=== PATIENT | male | born 1985 | race African-American/Black ===

== ENCOUNTER 2018-01-10 14:59 | Inpatient (IN) | payer OTHER ==
[~2018-01-10] VITALS: Ht 165.1 cm; Wt 61.6 kg
[~2018-01-10 14:59] MED LIST: CEPH500C3 PO; ROXI5TAB4 PO; SULF-154 PO; Z.0.WALKERFRONT
[2018-01-10] MEDS ORDERED: IOHEXOL 350 MG/ML 10 ML VIAL (for RAD DIAG) IVCONTRAST ONE (15:00)
[2018-01-10 15:07] VITALS: BP 113/75; PULSE 96; RESP 18; TEMP 103.2; O2SAT 97
[2018-01-10] MEDS ORDERED: SODIUM CHLOR 0.9% 1000 ML INJ 1,000 ML IV SCH (15:13)
[2018-01-10] MEDS ORDERED: PIPERACIL-TAZO 3.375 GM PREMIX 50 ML IV ONE (15:15)
[2018-01-10] MEDS ORDERED: ACETAMINOPHEN 325 MG TAB PO ONE (15:15)
[2018-01-10] MEDS ORDERED: MORPHINE SULFATE 4 MG/ML INJ IV PUSH ONE (15:15)
[2018-01-10] MEDS ORDERED: ONDANSETRON HCL 4 MG/2 ML VIAL IVP ONE (15:15)
[2018-01-10 15:17] VITALS: BP 115/75; PULSE 100; RESP 20; TEMP 102.5; O2SAT 95; O2SAT 96
--- NOTE | 2018-01-10 15:42 | PD ---
HPI Chief Complaint: Abdominal Pain Time Seen by Provider: 15:12 Travel History International Travel<30 days: No Contact w/Intl Traveler<30days: No Traveled to known affect area: No History of Present Illness HPI 32-year-old male that presents to the ED for evaluation of right lower quadrant abdominal pain as well as fever. Patient has a chronic history of HIV agreed takes no medications for it. Per patient lost his information to get the medications and has not had them in some time. States that his been having this severe right-sided pain for the past 3 days and worsened today. Gets worse with coughing and movement. Pain is mostly to the right lower quadrant but per patient he seems to be more of the following that actual abdomen. Denies any urinary or bowel movement issues. Per patient he never had surgeries on his abdomen. Allergies to medication. Per ambulance the patient' s ear was bothering 3. He didn't take anything for this. Denies any nausea or vomiting. States having some cough and congestion for the past couple of days. No allergies to medication. Per patient the pain is 8 out of 10 and constant. Nothing makes it better. Coughing and movement makes it worse. No history of kidney stones. PFSH Past Medical History Asthma: No Autoimmune Disease: Yes (HIV POSITIVE) Blood Disorders: No Cancer: No Cardiovascular Problems: No COPD: No Endocrine: No Gastrointestinal Disorders: No Genitourinary: No Immune Disorder: Yes (HIV) Musculoskeletal: No Neurologic: No Psychiatric: No Reproductive: No Respiratory: No Integumentary: Yes (abscess' on the right leg, sx drained) Tetanus Vaccination: Unknown Influenza Vaccination: No Past Surgical History Abdominal Surgery: No AICD: No Arteriovenous Shunt: No Cardiac Surgery: No Ear Surgery: No Endocrine Surgery: No Eye Surgery: No Genitourinary Surgery: No Insulin Pump: No Joint Replacement: No Neurologic Surgery: No Oral Surgery: No Pacemaker: No Thoracic Surgery: No Other Surgery: Yes (FRACTURED JAW) Social History Alcohol Use: Yes Tobacco Use: Yes (10) Substance Use: Yes (MARIJUANA OCCASIONALLY ) Allergies-Medications (Allergen,Severity, Reaction): Coded Allergies: No Known Allergies (Verified , 08/15/16) Reported Meds & Prescriptions Reported Meds & Active Scripts Active Roxicet 5/325 (Oxycodone/Acetaminophen) Tab 2 Tab PO Q12HR NEB PRN Septra Ds (Trimethoprim/Sulfamethoxazole) Tab 1 Tab PO MOWEFR@09 30 Days Keflex (Cephalexin Monohydrate) 500 Mg Cap 500 Mg PO Q8 14 Days Walker Front Wheel (Walkerfront) Device 1 Unit Review of Systems Except as stated in HPI: all other systems reviewed are Neg Physical Exam Narrative GENERAL: SKIN: Warm and dry. HEAD: Atraumatic. Normocephalic. EYES: Pupils equal and round. No scleral icterus. No injection or drainage. ENT: No nasal bleeding or discharge. Mucous membranes pink and moist. NECK: Trachea midline. No JVD. CARDIOVASCULAR: Regular rate and rhythm. RESPIRATORY: No accessory muscle use. Clear to auscultation. Breath sounds equal bilaterally. GASTROINTESTINAL: Abdomen soft, non-tender, nondistended. Hepatic and splenic margins not palpable. MUSCULOSKELETAL: Extremities without clubbing, cyanosis, or edema. No obvious deformities. Tender to palpation on the right flank and some in the right lower quadrant but mostly in the right flank. NEUROLOGICAL: Awake and alert. No obvious cranial nerve deficits. Motor grossly within normal limits. Five out of 5 muscle strength in the arms and legs. Normal speech. PSYCHIATRIC: Appropriate mood and affect; insight and judgment normal. Data Data Last Documented VS Vital Signs Date Time Temp Pulse Resp B/P (MAP) Pulse Ox O2 Delivery O2 Flow Rate FiO2 01/10/18 18:19 98.7 73 20 106/67 (80) 97 Room Air Orders Orders Complete Blood Count With Diff (01/10/18 15:13) Comprehensive Metabolic Panel (01/10/18 15:13) Lipase (01/10/18 15:13) Lactic Acid (01/10/18 15:13) Prothrombin Time / Inr (Pt) (01/10/18 15:13) Act Partial Throm Time (Ptt) (01/10/18 15:13) Urinalysis - C+S If Indicated (01/10/18 15:13) Ct Abd/Pel W Iv Contrast(Rout) (01/10/18 15:13) Iv Access Insert/Monitor (01/10/18 15:13) Ecg Monitoring (01/10/18 15:13) Oximetry (01/10/18 15:13) Morphine Inj (Morphine Inj) (01/10/18 15:15) Ondansetron Inj (Zofran Inj) (01/10/18 15:15) Sodium Chlor 0.9% 1000 Ml Inj (Ns 1000 M (01/10/18 15:13) Piperacil-Tazo 3.375 Gm Premix (Zosyn 3. (01/10/18 15:15) Acetaminophen (Tylenol) (01/10/18 15:15) Chest, Single Ap (01/10/18 ) Blood Culture (01/10/18 15:19) Sodium Chlor 0.9% 1000 Ml Inj (Ns 1000 M (01/10/18 16:15) Iohexol 350 Inj (Omnipaque 350 Inj) (01/10/18 15:00) Vancomycin Inj (Vancomycin Inj) (01/10/18 18:15) Admit Order (Ed Use Only) (01/10/18 18:21) Labs Laboratory Tests Test 01/10/18 15:25 01/10/18 18:00 White Blood Count 12.6 TH/MM3 Red Blood Count 4.19 MIL/MM3 Hemoglobin 13.4 GM/DL Hematocrit 38.4 % Mean Corpuscular Volume 91.5 FL Mean Corpuscular Hemoglobin 31.9 PG Mean Corpuscular Hemoglobin Concent 34.9 % Red Cell Distribution Width 12.5 % Platelet Count 135 TH/MM3 Mean Platelet Volume 9.6 FL Neutrophils (%) (Auto) 83.3 % Lymphocytes (%) (Auto) 7.9 % Monocytes (%) (Auto) 8.6 % Eosinophils (%) (Auto) 0.0 % Basophils (%) (Auto) 0.2 % Neutrophils # (Auto) 10.5 TH/MM3 Lymphocytes # (Auto) 1.0 TH/MM3 Monocytes # (Auto) 1.1 TH/MM3 Eosinophils # (Auto) 0.0 TH/MM3 Basophils # (Auto) 0.0 TH/MM3 CBC Comment DIFF FINAL Differential Comment Prothrombin Time 11.7 SEC Prothromb Time International Ratio 1.2 RATIO Activated Partial Thromboplast Time 36.2 SEC Blood Urea Nitrogen 10 MG/DL Creatinine 1.07 MG/DL Random Glucose 92 MG/DL Total Protein 9.3 GM/DL Albumin 3.1 GM/DL Calcium Level 8.7 MG/DL Alkaline Phosphatase 69 U/L Aspartate Amino Transf (AST/SGOT) 29 U/L Alanine Aminotransferase (ALT/SGPT) 17 U/L Total Bilirubin 0.5 MG/DL Sodium Level 130 MEQ/L Potassium Level 3.8 MEQ/L Chloride Level 96 MEQ/L Carbon Dioxide Level 25.5 MEQ/L Anion Gap 9 MEQ/L Estimat Glomerular Filtration Rate 97 ML/MIN Lactic Acid Level 1.2 mmol/L Lipase 149 U/L Urine Color LIGHT-YELLOW Urine Turbidity CLEAR Urine pH 6.0 Urine Specific [place] 1.009 Urine Protein 30 mg/dL Urine Glucose (UA) NEG mg/dL Urine Ketones NEG mg/dL Urine Occult Blood MOD Urine Nitrite NEG Urine Bilirubin NEG Urine Urobilinogen LESS THAN 2.0 MG/DL Urine Leukocyte Esterase NEG Urine RBC 3 /hpf Urine WBC 1 /hpf Urine Squamous Epithelial Cells <1 /hpf Microscopic Urinalysis Comment CULT NOT INDICATED MDM Medical Decision Making Medical Screen Exam Complete: Yes Emergency Medical Condition: Yes Medical Record Reviewed: Yes Interpretation(s) Last Impressions Abdomen/Pelvis CT 01/10/18 1513 Signed Impressions: Service Date/Time: December 17:35 - CONCLUSION: 1. No acute findings in the abdomen/pelvis. 2. Mass in the posterior right lung is partially included in the [id number] of the examination and probably correlates to the abnormality seen on chest x-ray. Recommend CT thorax with contrast to further evaluate the extent of this mass and to evaluate for mediastinal adenopathy. Findings are suspicious for malignancy. Uriel Lombardi MD Chest X-Ray 01/10/18 0000 Signed Impressions: Service Date/Time: December 15:23 - CONCLUSION: 1. No infiltrate seen. 2. Fullness in the right hilar region with differential considerations including asymmetrically dilated pulmonary vessels versus right hilar adenopathy. Uriel Lombardi MD CBC & BMP Diagram 01/10/18 15:25 Total Protein 9.3 H, Albumin 3.1 L, Calcium Level 8.7, Alkaline Phosphatase 69, Aspartate Amino Transf (AST/SGOT) 29, Alanine Aminotransferase (ALT/SGPT) 17, Total Bilirubin 0.5 lactic acid WNL Differential Diagnosis Appendicitis versus sepsis versus kidney disease versus AIDS versus pyelonephritis Narrative Course 32-year-old male that presents to the ED for evaluation of right lower quadrant pain and fever. Patient was properly examined and was found to have signs and symptoms of unclear etiology no definite concerning for possible appendicitis versus pyelonephritis versus sepsis. Labs and imaging were ordered. Patient was started IV fluids as well as Tylenol and pain medication. Labs and imaging showed leukocytosis and mass to right lung. My attending Dr pineda recommends admission and antibiotics. Patient agrees. Patient was admitted to Dr Majano who agrees to admission. Diagnosis Primary Impression: Pneumonia Qualified Codes: J18.1 - Lobar pneumonia, unspecified organism Additional Impressions: HIV disease Abdominal pain Qualified Codes: R10.31 - Right lower quadrant pain Admitting Information Admitting Physician Requests: Admit Mino Turcios Jan 10, 2018 15:42
--- NOTE | 2018-01-10 15:46 | RADRPT ---
EXAM DATE/TIME: 01/10/2018 15:23 [facility] COMPARISON: No previous studies available for comparison. INDICATIONS : Fever, left lateral side pain MEDICAL HISTORY : HIV SURGICAL HISTORY : None. ENCOUNTER: Initial ACUITY: 4 - 6 days PAIN SCORE: 8/10 LOCATION: chest FINDINGS: The lungs are symmetrically aerated and clear. There is asymmetric fullness in the right hilar regio n which could represent dilated central vessels or right hilar adenopathy. The left hilar region has a normal appearance. The heart is normal size. Both hemidiaphragms well delineated. CONCLUSION: 1. No infiltrate seen. 2. Fullness in the right hilar region with differential considerations including asymmetrically dilat ed pulmonary vessels versus right hilar adenopathy. Uriel Lombardi MD on January 10, 2018 at 15:44 Board Certified Radiologist. This report was verified electronically.
[2018-01-10 15:57] LABS: ALBUMIN 3.1 GM/DL (3.4-5.0); ALT (GPT) 17 U/L (12-78); AST (GOT) 29 U/L (15-37); BICARBONATE 25.5 MEQ/L (21.0-32.0); BLOOD UREA NITROGEN 10 MG/DL (7-18); CALCIUM 8.7 MG/DL (8.5-10.1); CHLORIDE 96 MEQ/L (98-107); CREATININE 1.07 MG/DL (0.60-1.30); GLOMERULAR FILTRATION RATE 97 ML/MIN (>89); GLUCOSE,RANDOM 92 MG/DL (74-106); SODIUM (NA) 130 MEQ/L (136-145)
[2018-01-10 15:59] LABS: ALKALINE PHOSPHATASE 69 U/L (45-117); TOTAL BILIRUBIN ADULT 0.5 MG/DL (0.2-1.0); TOTAL PROTEIN 9.3 GM/DL (6.4-8.2)
[2018-01-10 16:00] LABS: AUTOMATED NEUTROPHIL # 10.5 TH/MM3 (1.8-7.7); BASOPHIL % 0.2 % (0.0-2.0); HEMATOCRIT 38.4 % (39.0-51.0); HEMOGLOBIN 13.4 GM/DL (13.0-17.0); LYMPH % 7.9 % (9.0-44.0); MEAN CELL VOLUME 91.5 FL (80.0-100.0); MEAN CORPUSCULAR HEMOGLOBIN 31.9 PG (27.0-34.0); MEAN CORPUSCULAR HGB CONC 34.9 % (32.0-36.0); MEAN PLATELET VOLUME 9.6 FL (7.0-11.0); MONO % 8.6 % (0.0-8.0); MONOCYTE # 1.1 TH/MM3 (0-0.9); NEUT % 83.3 % (16.0-70.0); PLATELET COUNT 135 TH/MM3 (150-450); RED BLOOD COUNT 4.19 MIL/MM3 (4.50-5.90); RED CELL DISTRIBUTION WIDTH 12.5 % (11.6-17.2); WHITE BLOOD COUNT 12.6 TH/MM3 (4.0-11.0)
--- NOTE | 2018-01-10 16:06 | PD ---
Physical Exam Date Seen by Provider: Jan 10, 2018 Time Seen by Provider: 16:06 Narrative 32-year-old male who has HIV came to the emergency room with history of fever, abdominal/right flank pain. Patient appears to be sick and toxic. He is been seen by the PA and I'm supervising him. The working diagnosis is either rule out pyelonephritis or appendicitis. Motor shows some leukocytosis. Awaiting for UA and a CAT scan to be done and resulted. Upon examining patient appears to be in moderate distress. Patient is tender on his entire right side. He also seemed lethargic. Data Data Last Documented VS Orders Orders Complete Blood Count With Diff (01/10/18 15:13) Comprehensive Metabolic Panel (01/10/18 15:13) Lipase (01/10/18 15:13) Lactic Acid (01/10/18 15:13) Prothrombin Time / Inr (Pt) (01/10/18 15:13) Act Partial Throm Time (Ptt) (01/10/18 15:13) Urinalysis - C+S If Indicated (01/10/18 15:13) Ct Abd/Pel W Iv Contrast(Rout) (01/10/18 15:13) Iv Access Insert/Monitor (01/10/18 15:13) Ecg Monitoring (01/10/18 15:13) Oximetry (01/10/18 15:13) Morphine Inj (Morphine Inj) (01/10/18 15:15) Ondansetron Inj (Zofran Inj) (01/10/18 15:15) Sodium Chlor 0.9% 1000 Ml Inj (Ns 1000 M (01/10/18 15:13) Piperacil-Tazo 3.375 Gm Premix (Zosyn 3. (01/10/18 15:15) Acetaminophen (Tylenol) (01/10/18 15:15) Chest, Single Ap (01/10/18 ) Blood Culture (01/10/18 15:19) Sodium Chlor 0.9% 1000 Ml Inj (Ns 1000 M (01/10/18 16:15) Iohexol 350 Inj (Omnipaque 350 Inj) (01/10/18 15:00) Vancomycin Inj (Vancomycin Inj) (01/10/18 18:15) Admit Order (Ed Use Only) (01/10/18 18:21) Labs Laboratory Tests Test 01/10/18 15:25 01/10/18 18:00 White Blood Count 12.6 TH/MM3 Red Blood Count 4.19 MIL/MM3 Hemoglobin 13.4 GM/DL Hematocrit 38.4 % Mean Corpuscular Volume 91.5 FL Mean Corpuscular Hemoglobin 31.9 PG Mean Corpuscular Hemoglobin Concent 34.9 % Red Cell Distribution Width 12.5 % Platelet Count 135 TH/MM3 Mean Platelet Volume 9.6 FL Neutrophils (%) (Auto) 83.3 % Lymphocytes (%) (Auto) 7.9 % Monocytes (%) (Auto) 8.6 % Eosinophils (%) (Auto) 0.0 % Basophils (%) (Auto) 0.2 % Neutrophils # (Auto) 10.5 TH/MM3 Lymphocytes # (Auto) 1.0 TH/MM3 Monocytes # (Auto) 1.1 TH/MM3 Eosinophils # (Auto) 0.0 TH/MM3 Basophils # (Auto) 0.0 TH/MM3 CBC Comment DIFF FINAL Differential Comment Prothrombin Time 11.7 SEC Prothromb Time International Ratio 1.2 RATIO Activated Partial Thromboplast Time 36.2 SEC Blood Urea Nitrogen 10 MG/DL Creatinine 1.07 MG/DL Random Glucose 92 MG/DL Total Protein 9.3 GM/DL Albumin 3.1 GM/DL Calcium Level 8.7 MG/DL Alkaline Phosphatase 69 U/L Aspartate Amino Transf (AST/SGOT) 29 U/L Alanine Aminotransferase (ALT/SGPT) 17 U/L Total Bilirubin 0.5 MG/DL Sodium Level 130 MEQ/L Potassium Level 3.8 MEQ/L Chloride Level 96 MEQ/L Carbon Dioxide Level 25.5 MEQ/L Anion Gap 9 MEQ/L Estimat Glomerular Filtration Rate 97 ML/MIN Lactic Acid Level 1.2 mmol/L Lipase 149 U/L Urine Color LIGHT-YELLOW Urine Turbidity CLEAR Urine pH 6.0 Urine Specific [place] 1.009 Urine Protein 30 mg/dL Urine Glucose (UA) NEG mg/dL Urine Ketones NEG mg/dL Urine Occult Blood MOD Urine Nitrite NEG Urine Bilirubin NEG Urine Urobilinogen LESS THAN 2.0 MG/DL Urine Leukocyte Esterase NEG Urine RBC 3 /hpf Urine WBC 1 /hpf Urine Squamous Epithelial Cells <1 /hpf Microscopic Urinalysis Comment CULT NOT INDICATED MDM Supervised Visit with JOSELYN: Yes Theresa Martínez MD Jan 10, 2018 16:06
[2018-01-10] MEDS ORDERED: SODIUM CHLOR 0.9% 1000 ML INJ 1,000 ML IV ONE (16:15)
[2018-01-10 16:30] LABS: INTERNATIONAL NORMALIZED RATIO 1.2 RATIO; PROTHROMBIN TIME - PATIENT 11.7 SEC (9.8-11.6)
--- NOTE | 2018-01-10 17:56 | RADRPT ---
EXAM DATE/TIME: 01/10/2018 17:35 [facility] COMPARISON: CHEST SINGLE AP, January 10, 2018, 15:23. INDICATIONS : Patient complains of right sided abdominal pain. IV CONTRAST: 97 cc Omnipaque 350 (iohexol) IV ORAL CONTRAST: No oral contrast ingested. RADIATION DOSE: 6.64 CTDIvol (mGy) MEDICAL HISTORY : HIV. SURGICAL HISTORY : None. ENCOUNTER: Initial ACUITY: 1 day PAIN SCALE: 8/10 LOCATION: Right lateral mid abdomen TECHNIQUE: Volumetric scanning of the abdomen and pelvis was performed. Using automated exposure control and ad justment of the mA and/or kV according to patient size, radiation dose was kept as low as reasonably achievable to obtain optimal diagnostic quality images. DICOM format image data is available electro nically for review and comparison. FINDINGS: LOWER LUNGS: Incompletely included in the [id number] is a mass in the posterior right lung which measures 4.6 c m, is devoid of air bronchograms and has a spiculated margins. This is located posterior near the pl eural surface, but could correlate with the right hilar opacity seen on recent chest x-ray. There is also a small right pleural effusion measuring 6 mm. The left lung is clear. LIVER: Homogeneous density without lesion. There is no dilation of the biliary tree. No calcified gallston es. SPLEEN: Normal size without lesion. PANCREAS: Within normal limits. KIDNEYS: Normal in size and shape. There is no mass, stone or hydronephrosis. ADRENAL GLANDS: Within normal limits. VASCULAR: There is no aortic aneurysm. BOWEL/MESENTERY: The stomach, small bowel, and colon demonstrate no acute abnormality. There is no free intraperitone al air or fluid. ABDOMINAL WALL: Within normal limits. RETROPERITONEUM: There is no lymphadenopathy. BLADDER: No wall thickening or mass. REPRODUCTIVE: Within normal limits. INGUINAL: There is no lymphadenopathy or hernia. MUSCULOSKELETAL: Within normal limits for patient age. CONCLUSION: 1. No acute findings in the abdomen/pelvis. 2. Mass in the posterior right lung is partially included in the [id number] of the examination and probably correlates to the abnormality seen on chest x-ray. Recommend CT thorax with contrast to fu rther evaluate the extent of this mass and to evaluate for mediastinal adenopathy. Findings are susp icious for malignancy. Uriel Lombardi MD on January 10, 2018 at 17:50 Board Certified Radiologist. This report was verified electronically.
[2018-01-10] MEDS ORDERED: VANCOMYCIN INJ 1,000 MG in SODIUM CHLOR 0.9% 250 ML INJ 250 ML IV ONE (18:15)
[2018-01-10 18:19] VITALS: BP 106/67; PULSE 73; RESP 20; TEMP 98.7; O2SAT 97
[2018-01-10] MEDS ORDERED: SODIUM CHLORIDE 0.9% FLUSH 10 ML FLUSH IV FLUSH PRN (18:30)
[2018-01-10] MEDS ORDERED: NALOXONE HCL 0.4 MG/ML AMP IV PUSH PRN (18:30)
[2018-01-10] MEDS ORDERED: Vancomycin Consult Pharmacy 1 EA OTHER SCH (18:30)
[2018-01-10 18:36] LABS: BILIRUBIN, URINE NEG (NEG); BLOOD, URINE MOD (NEG); GLUCOSE,URINE NEG (NEG); KETONE, URINE NEG (NEG); NITRITE,URINE NEG (NEG); SQUAMOUS EPITHELIAL CELL URINE <1 /hpf (0-5); URINE COLOR LIGHT-YELLOW (YELLW/STRAW); URINE LEUKOCYTE ESTERASE NEG (NEG)
--- NOTE | 2018-01-10 18:58 | HHI.HP ---
HPI Service [facility] Primary Care Physician No Primary Care Physician Admission Diagnosis sepsis, pneumonia, AIDS patient non compliant Diagnoses: Travel History International Travel<30 Days: No Contact w/Intl Traveler <30 Da: No Traveled to Known Affected Are: No History of Present Illness History from patient, ER PA communication, and review of medical records. Patient reported that he came to the hospital because he's been having pain whenever he takes a deep breath. He pointed to right upper quadrant and right flank and right upper chest area. He is really noted to be having shallow breathing because of this pain. Dose to be in quite a bit of distress as well. Patient denies fever. Reports that the symptoms have been there for a week and a half. Not taking any antibiotics as an outpatient. Denies of cough but it hurts so much that he reports he just swallow food his sputum. On exam, his cough sounded more of dry cough though. Denies any nausea/vomiting/diarrhea. Denies any anterior chest pains. Denies any urinary burning or pain on urination or frequent urination. Denies seeing any blood in his stools or urine. Denies any palpitation/dizziness/syncopal episodes. Patient has history of HIV. Denies having AIDS. However has not been on medications for a few years. Claims that he has HIV at . Reports that he was on medications since then on and off. He was in senior living from 2012 to 2014 and was taking medications for it then. Review of Systems Except as stated in HPI: all other systems reviewed are Neg Past Family Social History Past Medical History HIV not on meds [id number] he was on HIV meds at senior living but was diagnosed with it since - and was on and off on hiv meds Past Surgical History boils on right leg - drainage and incision jaw sx from trauma Allergies: Coded Allergies: No Known Allergies (Verified , 08/15/16) Family History mom hiv according to him Social History no smoking regularly no etoh no drugs Physical Exam Vital Signs Vital Signs Date Time Temp Pulse Resp B/P (MAP) Pulse Ox O2 Delivery O2 Flow Rate FiO2 01/10/18 18:19 98.7 73 20 106/67 (80) 97 Room Air 01/10/18 16:23 18 01/10/18 15:27 18 01/10/18 15:17 95 Room Air 01/10/18 15:17 18 01/10/18 15:17 102.5 100 20 115/75 (88) 96 Room Air 01/10/18 15:07 103.2 96 18 113/75 (88) 97 Physical Exam GENERAL: This is a thin gentleman, in no acute distress from pain. SKIN: No rashes, ecchymoses or lesions. Cool and dry. HEAD: Atraumatic. Normocephalic. No temporal or scalp tenderness. EYES: No scleral icterus. No injection or drainage. ENT: Nose without bleeding, purulent drainage or septal hematoma. Airway patent. NECK: Trachea midline. No JVD. Supple, nontender, no meningeal signs. CARDIOVASCULAR: Tachycardic, regular rhythm without murmurs, gallops, or rubs. RESPIRATORY: Shallow breathing secondary to pain. Decreased air entry bilaterally. GASTROINTESTINAL: Abdomen soft, non-tender, nondistended. No hepato-splenomegaly , or palpable masses. No guarding. MUSCULOSKELETAL: Extremities without clubbing, cyanosis, or edema. No calf tenderness. NEUROLOGICAL: Awake and alert.Motor and sensory grossly within normal limits.Normal speech. Laboratory Laboratory Tests Test 01/10/18 15:25 01/10/18 18:00 White Blood Count 12.6 Red Blood Count 4.19 Hemoglobin 13.4 Hematocrit 38.4 Mean Corpuscular Volume 91.5 Mean Corpuscular Hemoglobin 31.9 Mean Corpuscular Hemoglobin Concent 34.9 Red Cell Distribution Width 12.5 Platelet Count 135 Mean Platelet Volume 9.6 Neutrophils (%) (Auto) 83.3 Lymphocytes (%) (Auto) 7.9 Monocytes (%) (Auto) 8.6 Eosinophils (%) (Auto) 0.0 Basophils (%) (Auto) 0.2 Neutrophils # (Auto) 10.5 Lymphocytes # (Auto) 1.0 Monocytes # (Auto) 1.1 Eosinophils # (Auto) 0.0 Basophils # (Auto) 0.0 CBC Comment DIFF FINAL Differential Comment Prothrombin Time 11.7 Prothromb Time International Ratio 1.2 Activated Partial Thromboplast Time 36.2 Blood Urea Nitrogen 10 Creatinine 1.07 Random Glucose 92 Total Protein 9.3 Albumin 3.1 Calcium Level 8.7 Alkaline Phosphatase 69 Aspartate Amino Transf (AST/SGOT) 29 Alanine Aminotransferase (ALT/SGPT) 17 Total Bilirubin 0.5 Sodium Level 130 Potassium Level 3.8 Chloride Level 96 Carbon Dioxide Level 25.5 Anion Gap 9 Estimat Glomerular Filtration Rate 97 Lactic Acid Level 1.2 Lipase 149 Urine Color LIGHT-YELLOW Urine Turbidity CLEAR Urine pH 6.0 Urine Specific [place] 1.009 Urine Protein 30 Urine Glucose (UA) NEG Urine Ketones NEG Urine Occult Blood MOD Urine Nitrite NEG Urine Bilirubin NEG Urine Urobilinogen LESS THAN 2.0 Urine Leukocyte Esterase NEG Urine RBC 3 Urine WBC 1 Urine Squamous Epithelial Cells <1 Microscopic Urinalysis Comment CULT NOT INDICATED Date/Time Source Procedure Growth Status 01/10/18 15:33 Blood Peripheral Aerobic Blood Culture Pending Received 01/10/18 15:33 Blood Peripheral Anaerobic Blood Culture Pending Received 01/10/18 18:30 Nasal Washing Influenza Types A,B Antigen (AGNELA) Pending Received Result Diagram: 01/10/18 1525 01/10/18 1525 Imaging Last [address] 01/10/18 1853 Signed Impressions: Service Date/Time: December 21:11 - CONCLUSION: 1. Dense masslike airspace consolidation in the posterior right lower lobe with adjacent 1.7 cm satellite nodule. The findings are more consistent with an infectious etiology. Recommend followup to resolution. 2. Subtle adjacent pleural thickening in the inferior right hemithorax, like reactive. Brian Escobar MD Abdomen/Pelvis CT 01/10/18 1513 Signed Impressions: Service Date/Time: December 17:35 - CONCLUSION: 1. No acute findings in the abdomen/pelvis. 2. Mass in the posterior right lung is partially included in the [id number] of the examination and probably correlates to the abnormality seen on chest x-ray. Recommend CT thorax with contrast to further evaluate the extent of this mass and to evaluate for mediastinal adenopathy. Findings are suspicious for malignancy. Uriel Lombardi MD Lung Scan-VQ Nuclear Medicine 01/10/18 0000 Signed Impressions: Service Date/Time: December 20:37 - CONCLUSION: 1. Normal V/Q scan. Brian Escobar MD Chest X-Ray 01/10/18 0000 Signed Impressions: Service Date/Time: December 15:23 - CONCLUSION: 1. No infiltrate seen. 2. Fullness in the right hilar region with differential considerations including asymmetrically dilated pulmonary vessels versus right hilar adenopathy. MD Lacoh Jiang VTE Risk Assessment Caprini VTE Risk Assessment: Mod/High Risk (score >= 2) Caprini Risk Assessment Model Point Value = 1 Point Value = 2 Point Value = 3 Point Value = 5 Age 41-60 Minor surgery BMI > 25 kg/m2 Swollen legs Varicose veins or History of unexplained or recurrent spontaneous Oral contraceptives or hormone replacement Sepsis (< 1 month) Serious lung disease, including pneumonia (< 1 month) Abnormal pulmonary function Acute myocardial infarction Congestive heart failure (< 1 month) History of inflammatory bowel disease Medical patient at bed rest Age 61-74 Arthroscopic surgery Major open surgery (> 45 min) Laparoscopic surgery (> 45 min) Malignancy Confined to bed (> 72 hours) Immobilizing plaster cast Central venous access Age >= 75 History of VTE Family history of VTE Factor V Leiden Prothrombin [id number] Lupus anticoagulant Anticardiolipin antibodies Elevated serum homocysteine Heparin-induced thrombocytopenia Other congenital or acquired thrombophilia Stroke (< 1 month) Elective arthroplasty Hip, pelvis, or leg fracture Acute spinal cord injury (< 1 month) Prophylaxis Regimen Total Risk Factor Score Risk Level Prophylaxis Regimen 0-1 Low Early ambulation 2 Moderate Order ONE of the following: *Sequential Compression Device (SCD) *Heparin 5000 units SQ BID 3-4 Higher Order ONE of the following medications: *Heparin 5000 units SQ TID *Enoxaparin/Lovenox 40 mg SQ daily (WT < 150 kg, CrCl > 30 mL/min) *Enoxaparin/Lovenox 30 mg SQ daily (WT < 150 kg, CrCl > 10-29 mL/min) *Enoxaparin/Lovenox 30 mg SQ BID (WT < 150 kg, CrCl > 30 mL/min) AND/OR *Sequential Compression Device (SCD) 5 or more Highest Order ONE of the following medications: *Heparin 5000 units SQ TID (Preferred with Epidurals) *Enoxaparin/Lovenox 40 mg SQ daily (WT < 150 kg, CrCl > 30 mL/min) *Enoxaparin/Lovenox 30 mg SQ daily (WT < 150 kg, CrCl > 10-29 mL/min) *Enoxaparin/Lovenox 30 mg SQ BID (WT < 150 kg, CrCl > 30 mL/min) AND *Sequential Compression Device (SCD) Assessment and Plan Assessment and Plan Impression: Fever. Suspect underlying bacteremia Pneumonia Possible lung mass Pleuritic chest pains and flank pain. Leukocytosis with left shift Hyponatremia HIV Plan: IV hydration. We will follow sodium with hydration. We'll follow blood culture results. UA and urine cultures. Chest x-ray personally reviewed. Suspicious right posterior lung lesion. We will obtain CT chest without contrast to further differentiate mass versus infection and his HIV patient. Abdomen and pelvis CT personally reviewed. No evidence of acute appendicitis/ cholecystitis. No evidence of renal stones/obstructive uropathy. Continue vancomycin and Zosyn for creatinine clearance and levels. Infectious disease Specialist consult for further recommendations. Obtain VQ scan to rule out pulmonary embolism as patient pain is quite significant and quite pruritic. He reports he has not been walking around for possible one week to 2 weeks because of this illness. Pain control. DVT prophylaxis with Lovenox. Discussed Condition With Patient, ER PA, nursing staff Physician Certification 2 Midnight Certification Type: Admission for Inpatient Services Order for Inpatient Services The services are ordered in accordance with Medicare regulations or non- Medicare payer requirements, as applicable. In the case of services not specified as inpatient-only, they are appropriately provided as inpatient services in accordance with the 2-midnight benchmark. Estimated LOS (days): 2 days is the estimated time the patient will need to remain in the hospital, assuming treatment plan goals are met and no additional complications. Post-Hospital Plan: Home Keily Majano MD Jan 10, 2018 18:58
[2018-01-10] MEDS ORDERED: HYDROmorphone HCL PF 2 MG/ML VIAL IV ONE (19:30)
--- NOTE | 2018-01-10 21:13 | RADRPT ---
EXAM DATE/TIME: 01/10/2018 20:37 [facility] COMPARISON: CHEST SINGLE AP, January 10, 2018, 15:23. INDICATIONS : Shortness of breath with chest pain for one day. DOSE: 8.7 mCi Tc99m MAA IV 0.82 mCi Tc99m DTPA aerosol MEDICAL HISTORY : HIV. SURGICAL HISTORY : Jaw. ENCOUNTER: Initial ACUITY: 1 day PAIN SCALE: 4/10 LOCATION: Bilateral chest TECHNIQUE: Following five minutes of tidal breathing of DTPA aerosol, planar images of the lungs were performed in eight projections. The patient was then injected with MAA, and eight-view perfusion scan was perf ormed. FINDINGS: There is a homogeneous pattern of aerosol delivery to the periphery of both lungs. No focal ventilat ory defects are seen. The perfusion lung scan demonstrates a homogenous pattern of uptake in both lungs. No segmental or s ubsegmental defects are seen. CONCLUSION: 1. Normal V/Q scan. Brian Escobar MD on January 10, 2018 at 21:10 Board Certified Radiologist. This report was verified electronically.
[2018-01-10] MEDS: ENOXAPARIN SODIUM 80 MG/0.8 ML SYRINGE SQ SCH (21:35)
--- NOTE | 2018-01-10 21:46 | RADRPT ---
EXAM DATE/TIME: 01/10/2018 21:11 [facility] COMPARISON: No previous studies available for comparison. INDICATIONS : Abnormal abdomen CT. Evaluate mass. RADIATION DOSE: 5.71 CTDIvol (mGy) MEDICAL HISTORY : HIV. SURGICAL HISTORY : None. ENCOUNTER: Initial ACUITY: 1 day PAIN SCALE: 5/10 LOCATION: Right chest TECHNIQUE: Volumetric scanning of the chest was performed. Using automated exposure control and adjustment of t he mA and/or kV according to patient size, radiation dose was kept as low as reasonably achievable to obtain optimal diagnostic quality images. DICOM format image data is available electronically for r eview and comparison. Follow-up recommendations for detected pulmonary nodules are based at a minimum on nodule size and pa tient risk factors according to Fleischner Society Guidelines. FINDINGS: LUNGS: Dense ill-defined nearly masslike airspace consolidation in the posterior right lower lobe measuring 3.8 x 5.6 cm. There is a satellite nodule measuring 1.7 cm in the inferior medial aspect of this mass . PLEURAE: Subtle pleural thickening in the caudal right inferior hemithorax. MEDIASTINUM: Heart is grossly unremarkable without significant pericardial effusion there is no gross mediastinal adenopathy although evaluation of the mediastinum and hilum is significantly limited due to lack of I V contrast and patient's body habitus. AXILLAE: Within normal limits. No lymphadenopathy. MUSCULOSKELETAL: Within normal limits for patient age. MISCELLANEOUS: The visualized upper abdominal organs demonstrate no acute abnormality. CONCLUSION: 1. Dense masslike airspace consolidation in the posterior right lower lobe with adjacent 1.7 cm satel lite nodule. The findings are more consistent with an infectious etiology. Recommend followup to reso lution. 2. Subtle adjacent pleural thickening in the inferior right hemithorax, like reactive. Brian Escobar MD on January 10, 2018 at 21:42 Board Certified Radiologist. This report was verified electronically.
[2018-01-10 22:00] VITALS: PULSE 91
[2018-01-10] MEDS: SODIUM CHLOR 0.9% 1000 ML INJ 1,000 ML IV SCH (23:04)
[2018-01-10] MEDS: PIPERACIL-TAZO 4.5 GM PREMIX 100 ML IV SCH (23:04)
[2018-01-10] MEDS: SODIUM CHLORIDE 0.9% FLUSH 10 ML FLUSH IV FLUSH SCH (23:05)
[2018-01-11] VITALS (9 sets, daily range): BP systolic 101–115; BP diastolic 56–60; PULSE 58–91; RESP 17–20; TEMP 98.2–99.2; O2SAT 96–98
[2018-01-11] MEDS: PIPERACIL-TAZO 4.5 GM PREMIX 100 ML IV SCH ×4 (02:58→20:45)
[2018-01-11 05:41] LABS: AUTOMATED NEUTROPHIL # 7.7 TH/MM3 (1.8-7.7); BASOPHIL % 0.3 % (0.0-2.0); EOSINOPHIL % 0.1 % (0.0-4.0); HEMATOCRIT 33.2 % (39.0-51.0); HEMOGLOBIN 11.5 GM/DL (13.0-17.0); LYMPH % 8.3 % (9.0-44.0); LYMPHOCYTE # 0.8 TH/MM3 (1.0-4.8); MEAN CELL VOLUME 92.1 FL (80.0-100.0); MEAN CORPUSCULAR HEMOGLOBIN 31.9 PG (27.0-34.0); MEAN CORPUSCULAR HGB CONC 34.6 % (32.0-36.0); MEAN PLATELET VOLUME 9.6 FL (7.0-11.0); MONO % 7.1 % (0.0-8.0); MONOCYTE # 0.7 TH/MM3 (0-0.9); NEUT % 84.2 % (16.0-70.0); PLATELET COUNT 119 TH/MM3 (150-450); RED CELL DISTRIBUTION WIDTH 12.8 % (11.6-17.2); WHITE BLOOD COUNT 9.1 TH/MM3 (4.0-11.0)
[2018-01-11] MEDS: VANCOMYCIN 1,000 MG/NS 250 ML IV SCH ×4 (05:52→17:22)
[2018-01-11 06:10] LABS: ALBUMIN 2.2 GM/DL (3.4-5.0); ALKALINE PHOSPHATASE 61 U/L (45-117); ALT (GPT) 15 U/L (12-78); AST (GOT) 29 U/L (15-37); BICARBONATE 29.2 MEQ/L (21.0-32.0); BLOOD UREA NITROGEN 7 MG/DL (7-18); CHLORIDE 104 MEQ/L (98-107); CREATININE 0.82 MG/DL (0.60-1.30); GLOMERULAR FILTRATION RATE 132 ML/MIN (>89); GLUCOSE,RANDOM 85 MG/DL (74-106); SODIUM (NA) 138 MEQ/L (136-145); TOTAL BILIRUBIN ADULT 0.3 MG/DL (0.2-1.0); TOTAL PROTEIN 7.2 GM/DL (6.4-8.2)
[2018-01-11] MEDS: SODIUM CHLOR 0.9% 1000 ML INJ 1,000 ML IV SCH ×3 (08:00→17:22)
[2018-01-11] MEDS: ENOXAPARIN SODIUM 80 MG/0.8 ML SYRINGE SQ SCH (08:26)
[2018-01-11] MEDS: LACTOBACILLUS ACIDOPHILUS TAB PO SCH ×3 (08:26→17:21)
[2018-01-11] MEDS: SODIUM CHLORIDE 0.9% FLUSH 10 ML FLUSH IV FLUSH SCH ×2 (08:27→20:45)
--- NOTE | 2018-01-11 09:20 | HHI.PR ---
Subjective Remarks Reports some cough and pain on the right lower lung field. No fever or chills overnight. Has productive sputum yellow color. No nausea or vomiting no diarrhea or constipation. Oxygen saturations good. Objective Vitals Vital Signs Date Time Temp Pulse Resp B/P (MAP) Pulse Ox O2 Delivery O2 Flow Rate FiO2 01/11/18 07:55 98.6 75 20 101/58 (72) 96 01/11/18 05:14 98.3 72 17 101/60 (74) 97 01/11/18 00:45 99.2 91 17 115/59 (77) 96 01/10/18 22:00 91 01/10/18 19:28 01/10/18 18:19 98.7 73 20 106/67 (80) 97 Room Air 01/10/18 16:23 18 01/10/18 15:27 18 01/10/18 15:17 95 Room Air 01/10/18 15:17 18 01/10/18 15:17 102.5 100 20 115/75 (88) 96 Room Air 01/10/18 15:07 103.2 96 18 113/75 (88) 97 I/O 01/10/18 01/10/18 01/10/18 01/11/18 01/11/18 01/11/18 06:59 14:59 22:59 06:59 14:59 22:59 Intake Total 360 ml Output Total 1300 ml Balance -940 ml Intake Oral 360 ml Output Urine Total 1300 ml Result Diagram: 01/11/18 0507 01/11/18 0507 Imaging Last Impressions Chest CT 01/10/18 1853 Signed Impressions: Service Date/Time: December 21:11 - CONCLUSION: 1. Dense masslike airspace consolidation in the posterior right lower lobe with adjacent 1.7 cm satellite nodule. The findings are more consistent with an infectious etiology. Recommend followup to resolution. 2. Subtle adjacent pleural thickening in the inferior right hemithorax, like reactive. Brian Escobar MD Abdomen/Pelvis CT 01/10/18 1513 Signed Impressions: Service Date/Time: December 17:35 - CONCLUSION: 1. No acute findings in the abdomen/pelvis. 2. Mass in the posterior right lung is partially included in the [id number] of the examination and probably correlates to the abnormality seen on chest x-ray. Recommend CT thorax with contrast to further evaluate the extent of this mass and to evaluate for mediastinal adenopathy. Findings are suspicious for malignancy. Uriel Lombardi MD Lung Scan-VQ Nuclear Medicine 01/10/18 0000 Signed Impressions: Service Date/Time: December 20:37 - CONCLUSION: 1. Normal V/Q scan. Brian Escobar MD Chest X-Ray 01/10/18 0000 Signed Impressions: Service Date/Time: December 15:23 - CONCLUSION: 1. No infiltrate seen. 2. Fullness in the right hilar region with differential considerations including asymmetrically dilated pulmonary vessels versus right hilar adenopathy. Uriel Lombardi MD Objective Remarks GENERAL: This is a well-nourished, well-developed patient, in no apparent distress. CARDIOVASCULAR: Regular rate and rhythm without murmurs, gallops, or rubs. RESPIRATORY: Clear to auscultation. Breath sounds equal bilaterally. No wheezes , rales, or rhonchi. GASTROINTESTINAL: Abdomen soft, non-tender, nondistended. No hepato-splenomegaly , or palpable masses. No guarding. MUSCULOSKELETAL: Extremities without clubbing, cyanosis, or edema. No joint tenderness, effusion, or edema noted. No calf tenderness. Negative Homans sign bilaterally. NEUROLOGICAL: Awake and alert. Cranial nerves II through XII intact. Motor and sensory grossly within normal limits. Five out of 5 muscle strength in all muscle groups. Normal speech. A/P Assessment and Plan Fever. Suspect underlying bacteremia Pneumonia Possible lung mass Pleuritic chest pains and flank pain. Leukocytosis with left shift Hyponatremia HIV Plan: IV hydration. We will follow sodium with hydration. We'll follow blood culture results. UA and urine cultures. Chest x-ray personally reviewed. Suspicious right posterior lung lesion. We will obtain CT chest without contrast to further differentiate mass versus infection and his HIV patient. Abdomen and pelvis CT personally reviewed. No evidence of acute appendicitis/ cholecystitis. No evidence of renal stones/obstructive uropathy. Continue vancomycin and Zosyn for creatinine clearance and levels. Infectious disease Specialist consult for further recommendations. Obtain VQ scan to rule out pulmonary embolism as patient pain is quite significant CT chect reviewed mass like lession in the right lower lung fiels with 1.7 nodule infectious process likely He reports he has not been walking around for possible one week to 2 weeks because of this illness. Pain control. DVT prophylaxis with Lovenox. Belia Cameron MD Jan 11, 2018 09:20
[2018-01-11] MEDS: ACETAMINOPHEN/HYDROcodone 325 MG/5 MG TAB PO PRN (15:00)
[2018-01-12] VITALS (9 sets, daily range): BP systolic 104–112; BP diastolic 61–74; PULSE 52–67; RESP 17–20; TEMP 97.2–98.2; O2SAT 98–100
[2018-01-12] MEDS: PIPERACIL-TAZO 4.5 GM PREMIX 100 ML IV SCH ×4 (03:08→21:38)
[2018-01-12] MEDS: SODIUM CHLOR 0.9% 1000 ML INJ 1,000 ML IV SCH (03:52)
[2018-01-12] MEDS ORDERED: PHARMACY ORDERED LAB ONE (05:45)
[2018-01-12] MEDS: ACETAMINOPHEN/HYDROcodone 325 MG/5 MG TAB PO PRN ×3 (05:53→17:22)
[2018-01-12] MEDS: VANCOMYCIN 1,000 MG/NS 250 ML IV SCH ×6 (05:55→22:51)
[2018-01-12] MEDS: ENOXAPARIN SODIUM 40 MG/0.4 ML SYRINGE SQ SCH (09:00)
[2018-01-12] MEDS: SODIUM CHLORIDE 0.9% FLUSH 10 ML FLUSH IV FLUSH SCH ×2 (09:00→21:00)
[2018-01-12] MEDS: LACTOBACILLUS ACIDOPHILUS TAB PO SCH ×3 (09:13→17:21)
[2018-01-12] MEDS ORDERED: PNEUMOCOCCAL POLYVALENT INJ 25 MCG/0.5 ML SYR IM ONE (10:00)
[2018-01-12] MEDS ORDERED: INFLUENZA VIRUS VACCINE (QUADRIVALENT) 0.5 ML SYR IM ONE (10:00)
[2018-01-12 11:32] LABS: CREATININE 0.78 MG/DL (0.60-1.30)
--- NOTE | 2018-01-12 13:21 | HHI.PR ---
Subjective Remarks Pain is better controlled my medications. Still with cough productive of sputum no blood in it. No nausea or vomiting. Feels very tired. No fever or chills overnight. Objective Vitals Vital Signs Date Time Temp Pulse Resp B/P (MAP) Pulse Ox O2 Delivery O2 Flow Rate FiO2 01/12/18 11:45 97.9 61 20 105/67 (80) 99 01/12/18 08:33 97.2 61 20 104/66 (79) 98 01/12/18 04:48 97.9 52 17 111/61 (78) 100 01/12/18 00:53 98.2 57 17 105/65 (78) 100 01/11/18 21:00 63 01/11/18 20:44 98.2 67 17 101/57 (72) 98 01/11/18 16:32 65 I/O 01/11/18 01/11/18 01/11/18 01/12/18 01/12/18 01/12/18 06:59 14:59 22:59 06:59 14:59 22:59 Intake Total 610 ml 1100 ml 450 ml 1460 ml Output Total 1300 ml 600 ml 250 ml 1300 ml Balance -690 ml 500 ml 200 ml 160 ml Intake Oral 360 ml 360 ml IV Total 250 ml 1100 ml 450 ml 1100 ml Output Urine Total 1300 ml 600 ml 250 ml 1300 ml Result Diagram: 01/11/18 0507 01/12/18 1055 Imaging Last Impressions Chest CT 01/10/18 1853 Signed Impressions: Service Date/Time: December 21:11 - CONCLUSION: 1. Dense masslike airspace consolidation in the posterior right lower lobe with adjacent 1.7 cm satellite nodule. The findings are more consistent with an infectious etiology. Recommend followup to resolution. 2. Subtle adjacent pleural thickening in the inferior right hemithorax, like reactive. Brian Escobar MD Abdomen/Pelvis CT 01/10/18 1513 Signed Impressions: Service Date/Time: December 17:35 - CONCLUSION: 1. No acute findings in the abdomen/pelvis. 2. Mass in the posterior right lung is partially included in the [id number] of the examination and probably correlates to the abnormality seen on chest x-ray. Recommend CT thorax with contrast to further evaluate the extent of this mass and to evaluate for mediastinal adenopathy. Findings are suspicious for malignancy. Uriel Lombardi MD Lung Scan-VQ Nuclear Medicine 01/10/18 0000 Signed Impressions: Service Date/Time: December 20:37 - CONCLUSION: 1. Normal V/Q scan. Brian Escobar MD Chest X-Ray 01/10/18 0000 Signed Impressions: Service Date/Time: December 15:23 - CONCLUSION: 1. No infiltrate seen. 2. Fullness in the right hilar region with differential considerations including asymmetrically dilated pulmonary vessels versus right hilar adenopathy. Uriel Lombardi MD Objective Remarks GENERAL: This is a well-nourished, well-developed patient, in no apparent distress. CARDIOVASCULAR: Regular rate and rhythm without murmurs, gallops, or rubs. RESPIRATORY: Clear to auscultation. Breath sounds equal bilaterally. No wheezes , rales, or rhonchi. GASTROINTESTINAL: Abdomen soft, non-tender, nondistended. No hepato-splenomegaly , or palpable masses. No guarding. MUSCULOSKELETAL: Extremities without clubbing, cyanosis, or edema. No joint tenderness, effusion, or edema noted. No calf tenderness. Negative Homans sign bilaterally. NEUROLOGICAL: Awake and alert. Cranial nerves II through XII intact. Motor and sensory grossly within normal limits. Five out of 5 muscle strength in all muscle groups. Normal speech. A/P Assessment and Plan Fever. Suspect underlying bacteremia Pneumonia Possible lung mass Pleuritic chest pains and flank pain. Leukocytosis with left shift Hyponatremia HIV Plan: IV hydration. We will follow sodium with hydration. We'll follow blood culture results. UA and urine cultures. Chest x-ray personally reviewed. Suspicious right posterior lung lesion. We will obtain CT chest without contrast to further differentiate mass versus infection and his HIV patient. Abdomen and pelvis CT personally reviewed. No evidence of acute appendicitis/ cholecystitis. No evidence of renal stones/obstructive uropathy. Continue vancomycin and Zosyn for creatinine clearance and levels. Infectious disease Specialist consult for further recommendations. Add [place] as needed for chest pain VQ scan no pulmonary embolism CT chest reviewed mass like lesion in the right lower lung fiels with 1.7 nodule infectious process likely He reports he has not been walking around for possible one week to 2 weeks because of this illness. DVT prophylaxis with Lovenox. Belia Cameron MD Jan 12, 2018 13:21
--- NOTE | 2018-01-12 19:16 | PD.ID.CON ---
History of Present Illness Service ID Consult Requested By Dr Majano Reason for Consult HIV, PNA Primary Care Physician No Primary Care Physician Diagnoses: History of Present Illness Pt known to me from his previous admission Saw desirem in 2015 He is 32 yo male, has HIV dz, AIDS and is non compliant , not follows with his HIV provider,m, not on medx since he got out of prisone in 2014 He presented with R side back pain and On presentation fever up to 103 which resolved denies IVDu CT showed Dense masslike airspace consolidation in the posterior right lower lobe with adjacent 1.7 cm satellite nodule. The findings are more consistent with an infectious etiology Pt is endorsing expectoration While inp[rison was rtested for TB and he was negative Review of Systems Constitutional: COMPLAINS OF: Weight loss Respiratory: COMPLAINS OF: Cough, Sputum production Musculoskeletal: COMPLAINS OF: Back pain Except as stated in HPI: all other systems reviewed are Neg Past Family Social History Allergies: Coded Allergies: No Known Allergies (Verified , 08/15/16) Past Medical History HIV skin abscesses Past Surgical History surgery on the jaw for mandibular fracture Active Ordered Medications Medications where reviewed in EMR Antibiotics Include: zosybn vanco Family History Non-Contributory. Social History Social History + Tobacco. +ETOH. + Illicit Drugs (MJ). Physical Exam Vital Signs Vital Signs Date Time Temp Pulse Resp B/P (MAP) Pulse Ox O2 Delivery O2 Flow Rate FiO2 01/12/18 16:52 97.9 58 20 112/74 (87) 99 01/12/18 16:00 62 01/12/18 12:00 52 01/12/18 11:45 97.9 61 20 105/67 (80) 99 01/12/18 08:33 97.2 61 20 104/66 (79) 98 01/12/18 08:00 59 01/12/18 04:48 97.9 52 17 111/61 (78) 100 01/12/18 00:53 98.2 57 17 105/65 (78) 100 01/11/18 21:00 63 01/11/18 20:44 98.2 67 17 101/57 (72) 98 Physical Exam CONSTITUTIONAL/GENERAL: This is thin under nourished patient, in no apparent distress. SKIN: No jaundice, rashes, no lesions HEAD: Atraumatic. Normocephalic. EYES: Pupils equal and round and reactive. Extraocular motions intact. No scleral icterus. No injection or drainage. Fundi not examined. ENT: Hearing grossly normal. Nose without bleeding or purulent drainage. Oral mucosae moist without thrush exudates, masses, or lesions. No thrush Enlarged non tender parodis b/l NECK: Trachea midline. Supple, nontender. CARDIOVASCULAR: Regular rate and rhythm without murmurs, gallops, or rubs. No JVD. Peripheral pulses symmetric. RESPIRATORY/CHEST: Symmetric, unlabored respirations. Clear to auscultation. Breath sounds equal bilaterally. No wheezes, rales, or rhonchi. GASTROINTESTINAL: Abdomen soft, non-tender, nondistended. No hepato-splenomegaly , or palpable masses. No guarding. Bowel sounds present. GENITOURINARY: Without palpable bladder distension. No CAV tenderness MUSCULOSKELETAL: Extremities without clubbing, cyanosis, or edema. No joint tenderness or effusion noted. No calf tenderness. No mottling or clubbing. Back: mi;ldly tender to palpation R lumbar area , no deformities LYMPHATICS:+ Shotty cervical adenopathy NEUROLOGICAL: Awake and alert. Motor and sensory grossly within normal limits. Follows commands. Clear speech. Moves all extremities. PSYCHIATRIC: No obvious anxiety/depression. no apparent hallucinations or other psychotic thought process. Pleasnt and cooperative Laboratory Laboratory Tests Test 01/12/18 05:40 01/12/18 10:55 Vancomycin Level Trough 4.3 Creatinine 0.78 Estimat Glomerular Filtration Rate 140 Date/Time Source Procedure Growth Status 01/10/18 15:33 Blood Peripheral Aerobic Blood Culture - Preliminary NO GROWTH IN 2 DAYS Resulted 01/10/18 15:33 Blood Peripheral Anaerobic Blood Culture - Preliminary NO GROWTH IN 2 DAYS Resulted 01/11/18 20:50 Sputum Expectorated Sputum Gram Stain - Final Resulted 01/11/18 20:50 Sputum Expectorated Sputum Sputum Culture - Preliminary MODERATE GROWTH NORMAL RESPIRATORY FL... Resulted Result Diagram: 01/11/18 0507 01/12/18 1055 Imaging Last Impressions Chest CT 01/10/18 3743 Signed Impressions: Service Date/Time: December 21:11 - CONCLUSION: 1. Dense masslike airspace consolidation in the posterior right lower lobe with adjacent 1.7 cm satellite nodule. The findings are more consistent with an infectious etiology. Recommend followup to resolution. 2. Subtle adjacent pleural thickening in the inferior right hemithorax, like reactive. Brian Escobar MD Abdomen/Pelvis CT 01/10/18 1513 Signed Impressions: Service Date/Time: December 17:35 - CONCLUSION: 1. No acute findings in the abdomen/pelvis. 2. Mass in the posterior right lung is partially included in the depzv-bo-igkx of the examination and probably correlates to the abnormality seen on chest x-ray. Recommend CT thorax with contrast to further evaluate the extent of this mass and to evaluate for mediastinal adenopathy. Findings are suspicious for malignancy. Uriel Lombardi MD Lung Scan-VQ Nuclear Medicine 01/10/18 0000 Signed Impressions: Service Date/Time: December 20:37 - CONCLUSION: 1. Normal V/Q scan. Brian Escobar MD Chest X-Ray 01/10/18 0000 Signed Impressions: Service Date/Time: December 15:23 - CONCLUSION: 1. No infiltrate seen. 2. Fullness in the right hilar region with differential considerations including asymmetrically dilated pulmonary vessels versus right hilar adenopathy. Uriel Lombardi MD Assessment and Plan Assessment and Plan HIV non compliant RLL consolidation, mass likle mostly cw infection (PNA) - pts with AIDS can present withb atypical TB infiltrates TB risk factors (HIV, prisoner 2 yrs ago) cont curertnt abx clx isolation CD4 routine AFB fungal clx Lavinia David MD Jan 12, 2018 19:16
[2018-01-13] VITALS (9 sets, daily range): BP systolic 101–125; BP diastolic 57–80; PULSE 53–80; RESP 16–18; TEMP 97.5–98.8; O2SAT 96–100
[2018-01-13] MEDS: SODIUM CHLOR 0.9% 1000 ML INJ 1,000 ML IV SCH ×2 (00:15→10:28)
[2018-01-13] MEDS: PIPERACIL-TAZO 4.5 GM PREMIX 100 ML IV SCH ×4 (03:27→21:00)
[2018-01-13] MEDS ORDERED: PHARMACY ORDERED LAB ONE (05:45)
[2018-01-13] MEDS: VANCOMYCIN 1,000 MG/NS 250 ML IV SCH ×6 (05:54→22:16)
[2018-01-13] MEDS: ENOXAPARIN SODIUM 40 MG/0.4 ML SYRINGE SQ SCH (08:51)
[2018-01-13] MEDS: SODIUM CHLORIDE 0.9% FLUSH 10 ML FLUSH IV FLUSH SCH ×2 (08:52→21:00)
[2018-01-13] MEDS: ACETAMINOPHEN/HYDROcodone 325 MG/5 MG TAB PO PRN ×3 (08:52→22:16)
[2018-01-13] MEDS: LACTOBACILLUS ACIDOPHILUS TAB PO SCH ×3 (08:52→17:40)
--- NOTE | 2018-01-13 14:26 | HHI.PR ---
Subjective Remarks F/U PNA. He is doing okay denies chest pain and shortness of breath improving cough. States he wants to get better and will be compliant with therapy. Discussed with nursing Objective Vitals Vital Signs Date Time Temp Pulse Resp B/P (MAP) Pulse Ox O2 Delivery O2 Flow Rate FiO2 01/13/18 12:00 97.6 69 17 101/57 (72) 99 01/13/18 08:00 97.5 66 17 112/74 (87) 100 01/13/18 06:30 98.3 62 16 109/74 (86) 99 01/13/18 00:15 98.8 80 16 110/76 (87) 96 01/12/18 20:00 97.8 67 18 105/63 (77) 99 01/12/18 16:52 97.9 58 20 112/74 (87) 99 01/12/18 16:00 62 I/O 01/12/18 01/12/18 01/12/18 01/13/18 01/13/18 01/13/18 07:00 15:00 23:00 07:00 15:00 23:00 Intake Total 1460 ml 1040 ml 1000 ml 900 ml Output Total 1300 ml 1000 ml Balance 160 ml 1040 ml 1000 ml -100 ml Intake Oral 360 ml 940 ml 750 ml 900 ml IV Total 1100 ml 100 ml 250 ml Output Urine Total 1300 ml 1000 ml # Voids 3 1 2 # Bowel Movements 1 0 0 Result Diagram: 01/11/18 0507 01/12/18 1055 Imaging Last Impressions Chest CT 01/10/18 1853 Signed Impressions: Service Date/Time: December 21:11 - CONCLUSION: 1. Dense masslike airspace consolidation in the posterior right lower lobe with adjacent 1.7 cm satellite nodule. The findings are more consistent with an infectious etiology. Recommend followup to resolution. 2. Subtle adjacent pleural thickening in the inferior right hemithorax, like reactive. Brian Escobar MD Abdomen/Pelvis CT 01/10/18 1513 Signed Impressions: Service Date/Time: December 17:35 - CONCLUSION: 1. No acute findings in the abdomen/pelvis. 2. Mass in the posterior right lung is partially included in the upmen-tc-lumd of the examination and probably correlates to the abnormality seen on chest x-ray. Recommend CT thorax with contrast to further evaluate the extent of this mass and to evaluate for mediastinal adenopathy. Findings are suspicious for malignancy. Uriel Lombardi MD Lung Scan-VQ Nuclear Medicine 01/10/18 0000 Signed Impressions: Service Date/Time: December 20:37 - CONCLUSION: 1. Normal V/Q scan. Brian Escobar MD Chest X-Ray 01/10/18 0000 Signed Impressions: Service Date/Time: December 15:23 - CONCLUSION: 1. No infiltrate seen. 2. Fullness in the right hilar region with differential considerations including asymmetrically dilated pulmonary vessels versus right hilar adenopathy. Uriel Lombardi MD Objective Remarks GENERAL: WD WN in [place] SKIN: Warm and dry. CARDIOVASCULAR: Regular rate and rhythm. RESPIRATORY: No accessory muscle use. Clear to auscultation. Breath sounds equal bilaterally. GASTROINTESTINAL: Abdomen soft, non-tender, nondistended. MUSCULOSKELETAL: Extremities without clubbing, cyanosis, or edema. No obvious deformities. NEUROLOGICAL: Awake and alert. No obvious cranial nerve deficits. Motor grossly within normal limits. Five out of 5 muscle strength in the arms and legs. Normal speech. PSYCHIATRIC: Appropriate mood and affect; insight and judgment normal. A/P Problem List: (1) Pneumonia ICD Code: J18.9 - Pneumonia, unspecified organism Status: Acute (2) HIV disease ICD Code: B20 - Human immunodeficiency virus [HIV] disease Status: Acute Assessment and Plan Sepsis with right lower lobe mass like airspace consolidation in a noncompliant HIV patient with risk factors for TB. He is clinically stable on IV Zosyn and vancomycin. He is being ruled out for TB. Monitor CD4 count, cultures and continue pain management counselled regarding narcotics DVT prophylaxis with Lovenox Problem Qualifiers (1) Pneumonia: Qualified Codes: J18.1 - Lobar pneumonia, unspecified organism Raj Wolfe MD Jan 13, 2018 14:26
[2018-01-14] VITALS (10 sets, daily range): BP systolic 101–117; BP diastolic 62–76; PULSE 53–64; RESP 18; TEMP 97.7–97.9; O2SAT 98–100
[2018-01-14] MEDS: SODIUM CHLOR 0.9% 1000 ML INJ 1,000 ML IV SCH ×2 (00:46→15:04)
[2018-01-14] MEDS: PIPERACIL-TAZO 4.5 GM PREMIX 100 ML IV SCH ×4 (03:01→21:22)
[2018-01-14] MEDS: VANCOMYCIN 1,000 MG/NS 250 ML IV SCH ×6 (06:05→21:22)
[2018-01-14] MEDS: ACETAMINOPHEN/HYDROcodone 325 MG/5 MG TAB PO PRN ×5 (06:05→21:33)
[2018-01-14 07:42] LABS: CREATININE 0.78 MG/DL (0.60-1.30)
[2018-01-14] MEDS: ENOXAPARIN SODIUM 40 MG/0.4 ML SYRINGE SQ SCH (09:00)
--- NOTE | 2018-01-14 09:31 | HHI.PR ---
Objective Vitals Vital Signs Date Time Temp Pulse Resp B/P (MAP) Pulse Ox O2 Delivery O2 Flow Rate FiO2 01/14/18 08:29 97.7 60 18 113/73 (86) 98 01/14/18 07:05 18 01/14/18 04:00 97.8 55 18 101/62 (75) 99 01/14/18 00:00 97.8 62 18 117/70 (86) 99 01/13/18 20:00 97.8 57 18 125/80 (95) 100 01/13/18 19:40 53 01/13/18 16:24 65 01/13/18 12:12 53 01/13/18 12:00 97.6 69 17 101/57 (72) 99 I/O 01/13/18 01/13/18 01/13/18 01/14/18 01/14/18 01/14/18 07:00 15:00 23:00 07:00 15:00 23:00 Intake Total 900 ml 2691 ml Output Total 1000 ml Balance -100 ml 2691 ml Intake Oral 900 ml IV Total 2691 ml Output Urine Total 1000 ml # Voids 2 # Bowel Movements 0 Result Diagram: 01/11/18 0507 01/14/18 0553 A/P Problem List: (1) Pneumonia ICD Code: J18.9 - Pneumonia, unspecified organism Status: Acute (2) HIV disease ICD Code: B20 - Human immunodeficiency virus [HIV] disease Status: Acute Problem Qualifiers (1) Pneumonia: Qualified Codes: J18.1 - Lobar pneumonia, unspecified organism Michelle Mills MD Jan 14, 2018 09:31
[2018-01-14] MEDS: SODIUM CHLORIDE 0.9% FLUSH 10 ML FLUSH IV FLUSH SCH ×2 (09:32→21:22)
[2018-01-14] MEDS: LACTOBACILLUS ACIDOPHILUS TAB PO SCH ×3 (09:32→17:33)
--- NOTE | 2018-01-14 10:41 | HHI.PR ---
Subjective Remarks Patient states he feels fine, wants to go home. More concerned about getting pain medication upon discharge. Does not have a primary care doctor. Denies any chest pain, shortness of breath, nausea or vomiting. Objective Vitals Vital Signs Date Time Temp Pulse Resp B/P (MAP) Pulse Ox O2 Delivery O2 Flow Rate FiO2 01/14/18 10:35 18 01/14/18 09:10 59 01/14/18 08:29 97.7 60 18 113/73 (86) 98 01/14/18 04:00 97.8 55 18 101/62 (75) 99 01/14/18 00:00 97.8 62 18 117/70 (86) 99 01/13/18 20:00 97.8 57 18 125/80 (95) 100 01/13/18 19:40 53 01/13/18 16:24 65 01/13/18 12:12 53 01/13/18 12:00 97.6 69 17 101/57 (72) 99 I/O 01/13/18 01/13/18 01/13/18 01/14/18 01/14/18 01/14/18 07:00 15:00 23:00 07:00 15:00 23:00 Intake Total 900 ml 2691 ml Output Total 1000 ml Balance -100 ml 2691 ml Intake Oral 900 ml IV Total 2691 ml Output Urine Total 1000 ml # Voids 2 # Bowel Movements 0 Result Diagram: 01/11/18 0507 01/14/18 0553 Imaging Last Impressions Chest CT 01/10/18 1853 Signed Impressions: Service Date/Time: December 21:11 - CONCLUSION: 1. Dense masslike airspace consolidation in the posterior right lower lobe with adjacent 1.7 cm satellite nodule. The findings are more consistent with an infectious etiology. Recommend followup to resolution. 2. Subtle adjacent pleural thickening in the inferior right hemithorax, like reactive. Brian Escobar MD Abdomen/Pelvis CT 01/10/18 1513 Signed Impressions: Service Date/Time: December 17:35 - CONCLUSION: 1. No acute findings in the abdomen/pelvis. 2. Mass in the posterior right lung is partially included in the ilrvh-ba-nsam of the examination and probably correlates to the abnormality seen on chest x-ray. Recommend CT thorax with contrast to further evaluate the extent of this mass and to evaluate for mediastinal adenopathy. Findings are suspicious for malignancy. Uriel Lombardi MD Lung Scan-VQ Nuclear Medicine 01/10/18 0000 Signed Impressions: Service Date/Time: December 20:37 - CONCLUSION: 1. Normal V/Q scan. Brian Escobar MD Chest X-Ray 01/10/18 0000 Signed Impressions: Service Date/Time: December 15:23 - CONCLUSION: 1. No infiltrate seen. 2. Fullness in the right hilar region with differential considerations including asymmetrically dilated pulmonary vessels versus right hilar adenopathy. Uriel Lombardi MD Objective Remarks SKIN: Warm and dry. CARDIOVASCULAR: Regular rate and rhythm. RESPIRATORY: No accessory muscle use. Lungs appear clear to auscultation. Breath sounds equal bilaterally. GASTROINTESTINAL: Abdomen soft, non-tender, nondistended. MUSCULOSKELETAL: Extremities without edema. No obvious deformities. NEUROLOGICAL: Awake and alert. No obvious cranial nerve deficits. Motor grossly within normal limits. Normal speech. A/P Problem List: (1) Pneumonia ICD Code: J18.9 - Pneumonia, unspecified organism Status: Acute (2) HIV disease ICD Code: B20 - Human immunodeficiency virus [HIV] disease Status: Acute Assessment and Plan Sepsis with right lower lobe mass like airspace consolidation in a noncompliant HIV patient with risk factors for TB. He is clinically stable on IV Zosyn and vancomycin. He is being ruled out for TB. Monitor CD4 count, cultures and continue pain management. Patient has been counselled regarding narcotics. Patient has been encouraged to establish the primary care doctor. DVT prophylaxis with Lovenox Discharge Planning Awaiting clearance from ID Problem Qualifiers (1) Pneumonia: Qualified Codes: J18.1 - Lobar pneumonia, unspecified organism Michelle Mills MD Jan 14, 2018 10:41
[2018-01-14] MEDS ORDERED: PHARMACY ORDERED LAB ONE (13:45)
--- NOTE | 2018-01-14 19:10 | HHI.IDPN ---
Subjective Subjective Remarks MTB probe negative wants to go home afebrile no pain all clx (blood, sputum) negativge Antibiotics vanco zosyn Allergies: Coded Allergies: No Known Allergies (Verified , 08/15/16) Objective . Vital Signs Date Time Temp Pulse Resp B/P (MAP) Pulse Ox O2 Delivery O2 Flow Rate FiO2 01/14/18 18:36 18 01/14/18 16:35 53 01/14/18 16:00 97.8 59 18 112/65 (81) 99 01/14/18 13:52 61 01/14/18 12:30 97.7 64 18 112/76 (88) 98 01/14/18 09:10 59 01/14/18 08:29 97.7 60 18 113/73 (86) 98 01/14/18 04:00 97.8 55 18 101/62 (75) 99 01/14/18 00:00 97.8 62 18 117/70 (86) 99 01/13/18 20:00 97.8 57 18 125/80 (95) 100 01/13/18 19:40 53 01/14/18 01/14/18 01/15/18 15:00 23:00 07:00 Intake Total 480 ml Balance 480 ml Intake Oral 480 ml . Laboratory Tests Test 01/14/18 05:53 Creatinine 0.78 MG/DL Estimat Glomerular Filtration Rate 140 ML/MIN Microbiology Date/Time Source Procedure Growth Status 01/13/18 11:00 Sputum Expectorated Sputum Fungal Smear - Final NO FUNGAL ELEMENTS SEEN. Resulted 01/13/18 11:00 Sputum Expectorated Sputum Fungal Culture Pending Resulted 01/13/18 11:00 Sputum Expectorated Sputum Acid Fast Stain - Final NO ACID FAST BACILLI SEEN Resulted 01/13/18 11:00 Sputum Expectorated Sputum Mycobacterial Culture Pending Resulted 01/13/18 11:00 Sputum Expectorated Sputum Gram Stain - Final Resulted 01/13/18 11:00 Sputum Expectorated Sputum Sputum Culture - Preliminary HEAVY GROWTH NORMAL RESPIRATORY KRISS... Resulted 01/11/18 20:50 Sputum Expectorated Sputum Gram Stain - Final Complete 01/11/18 20:50 Sputum Expectorated Sputum Sputum Culture - Final HEAVY GROWTH NORMAL RESPIRATORY KRISS Complete Imaging Last Impressions Chest CT 01/10/18 4650 Signed Impressions: Service Date/Time: December 21:11 - CONCLUSION: 1. Dense masslike airspace consolidation in the posterior right lower lobe with adjacent 1.7 cm satellite nodule. The findings are more consistent with an infectious etiology. Recommend followup to resolution. 2. Subtle adjacent pleural thickening in the inferior right hemithorax, like reactive. Brian Escobar MD Abdomen/Pelvis CT 01/10/18 1513 Signed Impressions: Service Date/Time: December 17:35 - CONCLUSION: 1. No acute findings in the abdomen/pelvis. 2. Mass in the posterior right lung is partially included in the lzlxv-vk-fpqe of the examination and probably correlates to the abnormality seen on chest x-ray. Recommend CT thorax with contrast to further evaluate the extent of this mass and to evaluate for mediastinal adenopathy. Findings are suspicious for malignancy. Uriel Lombardi MD Lung Scan-VQ Nuclear Medicine 01/10/18 0000 Signed Impressions: Service Date/Time: December 20:37 - CONCLUSION: 1. Normal V/Q scan. Brian Escobar MD Chest X-Ray 01/10/18 0000 Signed Impressions: Service Date/Time: December 15:23 - CONCLUSION: 1. No infiltrate seen. 2. Fullness in the right hilar region with differential considerations including asymmetrically dilated pulmonary vessels versus right hilar adenopathy. Uriel Lombardi MD Physical Exam ONSTITUTIONAL/GENERAL: This is thin under nourished patient, in no apparent distress. SKIN: No jaundice, rashes, no lesions CARDIOVASCULAR: Regular rate and rhythm without murmurs, gallops, or rubs. No JVD. Peripheral pulses symmetric. RESPIRATORY/CHEST: Symmetric, unlabored respirations. Clear to auscultation. Breath sounds equal bilaterally. No wheezes, rales, or rhonchi. GASTROINTESTINAL: Abdomen soft, non-tender, nondistended. No hepato-splenomegaly , or palpable masses. No guarding. Bowel sounds present. GENITOURINARY: Without palpable bladder distension. No CAV tenderness MUSCULOSKELETAL: Extremities without clubbing, cyanosis, or edema. No joint tenderness or effusion noted. No calf tenderness. No mottling or clubbing. Back: mi;ldly tender to palpation R lumbar area , no deformities LYMPHATICS:+ Shotty cervical adenopathy NEUROLOGICAL: Awake and alert. Motor and sensory grossly within normal limits. Follows commands. Clear speech. Moves all extremities. PSYCHIATRIC: cooperative. pleaasant Assessment & Plan Remarks Assessment and Plan Assessment and Plan HIV non compliant RLL consolidation, mass likle mostly cw infection (PNA) - improved pain - AFB negative MTB probe negative cont curertnt abx fu clx dc isolation fu CD4 CXR in am; pt will need to reestablish f/u with HIV provider once d/c'd Lavinia David MD Jan 14, 2018 19:10
[2018-01-15 00:30] VITALS: PULSE 54
[2018-01-15 00:37] VITALS: BP 111/65; PULSE 60; RESP 18; TEMP 97.9; O2SAT 99
[2018-01-15] MEDS: PIPERACIL-TAZO 4.5 GM PREMIX 100 ML IV SCH ×2 (03:46→08:42)
[2018-01-15 04:30] VITALS: PULSE 60
[2018-01-15 05:12] VITALS: BP 104/64; PULSE 54; RESP 18; TEMP 97.5; O2SAT 99
[2018-01-15] MEDS: SODIUM CHLOR 0.9% 1000 ML INJ 1,000 ML IV SCH (05:22)
[2018-01-15] MEDS: VANCOMYCIN 1,000 MG/NS 250 ML IV SCH ×2 (05:44)
--- NOTE | 2018-01-15 07:21 | RADRPT ---
EXAM DATE/TIME: 01/15/2018 05:39 [facility] COMPARISON: CHEST SINGLE AP, January 10, 2018, 15:23. INDICATIONS : Short of breath MEDICAL HISTORY : HIV SURGICAL HISTORY : None. ENCOUNTER: Subsequent ACUITY: 4 - 6 days PAIN SCORE: 3/10 LOCATION: Bilateral chest FINDINGS: No significant new focal pleural-parenchymal opacities. Cardiomediastinal contours are stable. Osseou s structures are intact. CONCLUSION: 1. No acute abnormality or significant interval change. Brian Escobar MD on January 15, 2018 at 7:01 Board Certified Radiologist. This report was verified electronically.
[2018-01-15 08:19] VITALS: BP 125/71; PULSE 59; RESP 16; TEMP 97.1; O2SAT 99
[2018-01-15] MEDS: LACTOBACILLUS ACIDOPHILUS TAB PO SCH (08:42)
[2018-01-15] MEDS: SODIUM CHLORIDE 0.9% FLUSH 10 ML FLUSH IV FLUSH SCH (08:43)
[2018-01-15] MEDS: ENOXAPARIN SODIUM 40 MG/0.4 ML SYRINGE SQ SCH (08:43)
[2018-01-15 08:50] VITALS: PULSE 78
--- NOTE | 2018-01-15 12:07 | PD.AMA ---
Against Medical Advice Note Diagnosis: (1) AIDS (acquired immunodeficiency syndrome), CD4 <=200 (2) Pneumonia Discharge Disposition: Against Medical Advice Pt Condition on Discharge: Stable Recommended Treatment Course Further ID evaluation, IV antibiotics AMA Statement Patient Caio Nino has decided to leave the hospital against medical advice. This patient has the capacity to refuse care and understands the risks of leaving, including permanent disability and/or , and has had an opportunity to ask questions about his condition. The patient has been informed that he may return for care at any time, and follow up has been arranged/ advised. Ishmael Palumbo DO Jan 15, 2018 12:07
--- NOTE | 2018-01-15 12:07 | HHI.DCPOC ---
Discharge Care Plan Diagnosis: (1) Pneumonia (2) AIDS (acquired immunodeficiency syndrome), CD4 <=200 Goals to Promote Your Health * To prevent worsening of your condition and complications * To maintain your health at the optimal level Directions to Meet Your Goals Take your medications as prescribed Follow your dietary instruction Follow activity as directed Keep your appointments as scheduled Take your immunizations and boosters as scheduled If your symptoms worsen call your PCP, if no PCP go to Urgent Care Center or Emergency Room Smoking is Dangerous to Your Health. Avoid second hand smoke Call the 24-hour hour crisis hotline for domestic abuse at Ishmael Palumbo DO Jan 15, 2018 12:06
--- NOTE | 2018-01-15 12:10 | HHI.DS ---
Discharge Summary Admission Date Jan 10, 2018 at 18:23 Discharge Date: Jan 15, 2018 Admitting Diagnosis sepsis, pneumonia, AIDS patient non compliant (1) Pneumonia ICD Code: J18.9 - Pneumonia, unspecified organism Diagnosis: Principal Status: Acute (2) HIV disease ICD Code: B20 - Human immunodeficiency virus [HIV] disease Status: Acute Procedures None Brief History - From Admission History from patient, ER PA communication, and review of medical records. Patient reported that he came to the hospital because he's been having pain whenever he takes a deep breath. He pointed to right upper quadrant and right flank and right upper chest area. He is really noted to be having shallow breathing because of this pain. Dose to be in quite a bit of distress as well. Patient denies fever. Reports that the symptoms have been there for a week and a half. Not taking any antibiotics as an outpatient. Denies of cough but it hurts so much that he reports he just swallow food his sputum. On exam, his cough sounded more of dry cough though. Denies any nausea/vomiting/diarrhea. Denies any anterior chest pains. Denies any urinary burning or pain on urination or frequent urination. Denies seeing any blood in his stools or urine. Denies any palpitation/dizziness/syncopal episodes. Patient has history of HIV. Denies having AIDS. However has not been on medications for a few years. Claims that he has HIV at . Reports that he was on medications since then on and off. He was in retirement from 2012 to 2014 and was taking medications for it then. CBC/BMP: 01/11/18 0507 01/14/18 0553 Significant Findings Laboratory Tests Test 01/13/18 06:00 01/13/18 11:05 01/14/18 05:53 01/14/18 13:45 Vancomycin Level Trough 13.4 MCG/ML (5.0-10.0) 13.3 MCG/ML (5.0-10.0) PE at Discharge The patient left the hospital AGAINST MEDICAL ADVICE prior to being examined. Pt update on day of discharge The patient decided to leave AGAINST MEDICAL ADVICE prior to being evaluated by a physician on 01/15/18. Hospital Course Sepsis with right lower lobe masslike airspace consolidation in a noncompliant HIV patient with risk factors for TB. He is clinically stable on IV Zosyn and vancomycin. He is being ruled out for TB. We monitoredCD4 count, cultures and continued pain management. Patient has been counselled regarding narcotics. Patient has been encouraged to establish with a primary care doctor. Infectious disease was consulted. The pt left AMA prior to being seen by this physician on 01/15/18. Pt Condition on Discharge: Stable Discharge Disposition: Discharge Home Discharge Time: <= 30 minutes Discharge Instructions DIET: Follow Instructions for: Heart Healthy Diet Continued Medications: Cephalexin (Keflex) 500 Mg Cap 500 MG PO Q8 for abscess for 14 Days, CAP Oxycodone W/ Acetaminophen (Roxicet 5/325) 5 Mg-325 Mg Tab 2 TAB PO Q12HR NEB PRN for pain, #30 TAB Sulfamethoxazole-Trimethoprim (Septra Ds) 800 Mg-160 Mg Tab 1 TAB PO MoWeFr@09 for prophylaxis for 30 Days, TAB 11 Refills (Walker Front Wheel) Device 1 UNIT, #1 Ishmael Palumbo DO Jan 15, 2018 12:10
== END 2018-01-15 10:24 | disposition left against medical advice (07) | DRG 975 ==
LOC: NEPE 14:59 → NEDA 18:23 → N05B 19:41 → N05A 01-12 21:23
PROVIDERS: ADMIT Hospitalist; ATTEND Hospitalist
DX: A41.9 Sepsis, unspecified organism (principal); B20 Human immunodeficiency virus [HIV] disease; J18.9 Pneumonia, unspecified organism; E87.1 Hypo-osmolality and hyponatremia; Z91.19 Patient's noncompliance with other medical treatment and regimen; Z72.0 Tobacco use; F12.90 Cannabis use, unspecified, uncomplicated
CPT/HCPCS: 71045; 71250; 74177; 78582; 80053; 80202; 81001; 82565; 83605; 83690; 85025; 85610; 85730; 86355; 86357; 86359; 86360; 87015; 87040; 87070; 87102; 87116; 87205; 87206; 87556; 87798; 87804; 96365; 96375; A9540; A9567; J1170; J1650; J2270; J2405; J2543; J3370; J7030; J7050; Q9967

== ENCOUNTER 2018-05-14 00:20 | Emergency (ER) | payer SELFPAY ==
[~2018-05-14] VITALS: Ht 165.1 cm; Wt 55.0 kg
[2018-05-14 00:27] VITALS: BP 107/70; PULSE 78; RESP 18; TEMP 97.9; O2SAT 98
[2018-05-14] MEDS ORDERED: SODIUM CHLORIDE 0.9% FLUSH 10 ML FLUSH IV FLUSH PRN (00:45)
[2018-05-14] MEDS ORDERED: ALUMINUM/MAGNESIUM/SIMETH 30 ML CUP PO ONE (00:45)
[2018-05-14] MEDS ORDERED: LIDOCAINE VISCOUS 2% SOLN 15 ML UDC PO ONE (00:45)
[2018-05-14 03:19] VITALS: BP 104/72; PULSE 62; RESP 16; O2SAT 99
--- NOTE | 2018-05-14 04:48 | RADRPT ---
EXAM DATE: 05/14/2018 4:00 AM EDT AGE/SEX: 33 years / Male INDICATIONS: Cough. CLINICAL DATA: This is the patient's initial encounter. Patient reports that signs and symptoms have been present for 1 day and indicates a pain score of 0/10. MEDICAL/SURGICAL HISTORY: . HIV. None. COMPARISON: No prior exams available for comparison. FINDINGS: PA and lateral views of the chest demonstrate the lungs to be symmetrically aerated without evidence of mass, infiltrate or effusion. The cardiomediastinal contours are unremarkable. Osseous structures are intact. CONCLUSION: No acute cardiopulmonary process. Electronically signed by: Andrew Summers MD 05/14/2018 4:46 AM EDT
--- NOTE | 2018-05-14 05:43 | PD ---
HPI . abdominal pain Chief Complaint: Abdominal Pain Time Seen by Provider: 00:40 Travel History International Travel<30 days: No Contact w/Intl Traveler<30days: No Traveled to known affect area: No History of Present Illness HPI GENERAL: Pt is sleeping through out most of night on repeated checks SKIN: Warm and dry. HEAD: Atraumatic. Normocephalic. EYES: Pupils equal and round. No scleral icterus. No injection or drainage. ENT: No nasal bleeding or discharge. Mucous membranes pink and moist. NECK: Trachea midline. No JVD. CARDIOVASCULAR: Regular rate and rhythm. RESPIRATORY: No accessory muscle use. Clear to auscultation. Breath sounds equal bilaterally. GASTROINTESTINAL: Abdomen soft, non-tender, nondistended. Hepatic and splenic margins not palpable. MUSCULOSKELETAL: Extremities without clubbing, cyanosis, or edema. No obvious deformities. NEUROLOGICAL: Awake and alert. No obvious cranial nerve deficits. Motor grossly within normal limits. Five out of 5 muscle strength in the arms and legs. Normal speech. PSYCHIATRIC: Appropriate mood and affect; insight and judgment normal. PFSH Past Medical History Asthma: No Autoimmune Disease: Yes (HIV POSITIVE) Blood Disorders: No Cancer: No Cardiovascular Problems: No COPD: No Endocrine: No Gastrointestinal Disorders: No Genitourinary: No Immune Disorder: Yes (HIV) Musculoskeletal: No Neurologic: No Psychiatric: No Reproductive: No Respiratory: No Integumentary: Yes (abscess' on the right leg, sx drained) Past Surgical History Abdominal Surgery: No AICD: No Arteriovenous Shunt: No Cardiac Surgery: No Ear Surgery: No Endocrine Surgery: No Eye Surgery: No Genitourinary Surgery: No Insulin Pump: No Joint Replacement: No Neurologic Surgery: No Oral Surgery: No Pacemaker: No Thoracic Surgery: No Other Surgery: Yes (FRACTURED JAW) Social History Alcohol Use: Yes (OCCASSIONALLY) Tobacco Use: Yes (10 CIG/DAY) Substance Use: No Allergies-Medications (Allergen,Severity, Reaction): Coded Allergies: No Known Allergies (Verified Adverse Reaction, Unknown, 05/14/18) Reported Meds & Prescriptions Reported Meds & Active Scripts Active No Active Prescriptions or Reported Medications Data Data Last Documented VS Vital Signs Date Time Temp Pulse Resp B/P (MAP) Pulse Ox O2 Delivery O2 Flow Rate FiO2 05/14/18 03:19 62 16 104/72 (83) 99 Room Air 05/14/18 00:27 97.9 Orders Orders Iv Access Insert/Monitor (05/14/18 00:40) Ecg Monitoring (05/14/18 00:40) Oximetry (05/14/18 00:40) Sodium Chloride 0.9% Flush (Ns Flush) (05/14/18 00:45) Al-Mag Hy-Si 40-40-4 Mg/Ml Liq (Mag-Al P (05/14/18 00:45) Lidocaine 2% Viscous (Xylocaine 2% Visco (05/14/18 00:45) Chest, Pa & Lat (05/14/18 ) Ed Discharge Order (05/14/18 05:47) MDM Medical Decision Making Medical Screen Exam Complete: Yes Emergency Medical Condition: Yes Medical Record Reviewed: Yes Differential Diagnosis pt has epigastric pain releived by GI cocktail and asking mark food , DDx is GERD , gastritis vs GB disease vs pancreatitis other Narrative Course pt feels better after antiacids and food d/c home Diagnosis Primary Impression: Gastritis Qualified Codes: K29.70 - Gastritis, unspecified, without bleeding Scripts Famotidine (Pepcid) 20 Mg Tab 20 MG PO BID, #20 TAB 0 Refills Prov: Castillo Tabor MD 05/14/18 Disposition: 01 DISCHARGE HOME Condition: Good Castillo Tabor MD May 14, 2018 05:43
[2018-05-14] MEDS ORDERED: FAMO1TAB37 PO (05:48)
== END 2018-05-14 06:07 | disposition home or self-care (01) ==
LOC: NEPE 00:20
DX: K29.70 Gastritis, unspecified, without bleeding (principal); F17.210 Nicotine dependence, cigarettes, uncomplicated; Z21 Asymptomatic human immunodeficiency virus [HIV] infection status
CPT/HCPCS: 71046; 99283